=== PATIENT | female | born 1975 | race Two or more races ===

== ENCOUNTER 2017-04-28 20:58 | Emergency (ER) | payer OTHER ==
[~2017-04-28] VITALS: Ht 149.9 cm; Wt 87.5 kg
== END 2017-04-28 22:12 | disposition home or self-care (01) ==
LOC: SED 20:58
DX: S61.411A Laceration without foreign body of right hand, initial encounter (principal); E03.9 Hypothyroidism, unspecified; Z23 Encounter for immunization; W26.9XXA Contact with unspecified sharp object(s), initial encounter
CPT/HCPCS: 12001; 90471; 90715; 99283